=== PATIENT | male | born 1995 ===

== ENCOUNTER 2017-04-15 18:07 | Emergency (ER) | payer SELFPAY ==
[2017-04-15 18:55] VITALS: BP 156/87; PULSE 84; RESP 18; TEMP 98.7; O2SAT 97
--- NOTE | 2017-04-15 20:00 | C.PDOC ---
Time Seen by Provider: 04/15/17 19:07 Chief Complaint (Nursing): ENT Problem Past Medical History Vital Signs: Last Vital Signs Temp 98.7 F 04/15/17 18:54 Pulse 84 04/15/17 18:54 Resp 18 04/15/17 18:54 BP 156/87 H 04/15/17 18:54 Pulse Ox 97 04/15/17 18:54 Surgical History: Appendectomy Family History: States: Unknown Family Hx - Social History Hx Alcohol Use: Yes Hx Substance Use: Yes (marijuana) - Immunization History Hx Tetanus Toxoid Vaccination: No Hx Influenza Vaccination: No Hx Pneumococcal Vaccination: No ED Course And Treatment O2 Sat by Pulse Oximetry: 97 Disposition - Disposition Disposition: LEFT W/O BEING SEEN - ER ONLY Disposition Time: 19:59 Condition: UNKNOWN - Clinical Impression Clinical Impression: Patient left before evaluation by physician
== END 2017-04-15 19:26 | disposition left against medical advice (07) ==
LOC: C.ER 18:07
DX: Z02.89 Encounter for other administrative examinations (principal); R07.0 Pain in throat